=== PATIENT | male | born 1950 | race Caucasian/White ===

== ENCOUNTER 2019-09-30 05:27 | Inpatient (IN) ==
[2019-09-30] MEDS ORDERED: *HR* LORazepam 2 MG/ML VIAL ONE (08:02)
[2019-09-30] MEDS: *HR* LORazepam 2 MG/ML VIAL IVP PRN (08:06)
[2019-09-30] MEDS ORDERED: Amiodarone Premix 360 MG/200 ML BAG IVC ONE (08:14)
[2019-09-30] MEDS ORDERED: *HR* Heparin 5,000 UNIT/ML VIAL IVP ONE (08:14)
[2019-09-30] MEDS ORDERED: *HR* Heparin 5,000 UNIT/ML VIAL IVP PRN (08:14)
[2019-09-30] MEDS ORDERED: Amiodarone Premix 360 MG/200 ML BAG IVC SCH (08:15)
[2019-09-30 08:33] LABS: Basophils % 0.1 %; Eosinophils % 0.4 %; Hematocrit 28.9 % (37.5-50.1); Hemoglobin 9.6 g/dL (12.9-16.9); Immature Granulocytes % 0.4 % (0-4); Lymphocytes # 1.1 K/mcL (0.6-4.6); Lymphocytes % 14.4 %; Mean Corpuscular HGB Conc 33.2 g/dL (31.6-35.5); Mean Corpuscular Hemoglobin 29.4 pg (28.0-33.3); Mean Corpuscular Volume 88.4 fL (83.0-100.0); Mean Platelet Volume 10.4 fL (9.4-12.4); Monocytes # 0.6 K/mcL (0.0-1.3); Monocytes % 7.5 %; Neutrophils # 5.8 K/mcL (1.6-8.9); Platelet Count 155 K/mcL (140-400); Red Blood Count 3.27 M/mcL (4.19-5.50); Segmented Neutrophils % 77.2 %; White Blood Count 7.5 K/mcL (4.3-11.1)
[2019-09-30] MEDS ORDERED: Naloxone 0.4 MG/ML INJ IVP PRN (08:39)
[2019-09-30] MEDS ORDERED: *HR* Dextrose 50 % in Water (Syg) 50 ML SYRINGE IVP PRN (08:43)
[2019-09-30] MEDS ORDERED: Dextrose Gel 15 GM/37.5 ML TUBE PO PRN ×2 (08:43)
[2019-09-30] MEDS ORDERED: D5% in Water 1,000 ML IVC PRN (08:43)
[2019-09-30] MEDS: Heparin 25,000 UNIT/250 ML D5W 25,000 UNIT/250 ML IV.SOLN IVC SCH ×2 (08:54→22:58)
[2019-09-30 09:03] LABS: Albumin 3.1 g/dL (3.5-5.7); Albumin/Globulin Ratio 1.2 (1.1-2.2); Bilirubin,Total 0.4 mg/dL (0.3-1.0); Calcium 8.3 mg/dL (8.6-10.3); Globulin 2.5 g/dL (2.4-3.5); Magnesium 1.6 mg/dL (1.6-2.6); Potassium 3.8 mEq/L (3.5-5.1); Total Protein 5.6 g/dL (6.4-8.9); Troponin I 2.06 ng/mL (< 0.04)
[2019-09-30] MEDS: 0.9 % Sodium Chloride 1,000 ML IVC SCH ×2 (10:37→23:02)
[2019-09-30] MEDS: Cefepime HCl 2,000 MG in Water for inj. (sterile) 20 ML IVP SCH (11:37)
[2019-09-30] MEDS: MetroNIDAZOLE 500 MG/100 ML 500 MG/100 ML BAG IVPB SCH ×3 (11:38→23:29)
[2019-09-30] MEDS: Insulin LISPRO 300 UNITS/3 ML VIAL SQ SCH ×3 (11:43→23:51)
[2019-09-30] MEDS: Aspirin 81 MG TAB.CHEW PO SCH (13:31)
[2019-09-30] MEDS: *HR* Heparin 5,000 UNIT/ML VIAL IVP PRN (14:21)
[2019-10-01 02:45] LABS: Basophils % 0.1 %; Eosinophils # 0.1 K/mcL (0.0-0.6); Eosinophils % 1.7 %; Hematocrit 27.1 % (37.5-50.1); Hemoglobin 9.3 g/dL (12.9-16.9); Immature Granulocytes % 0.4 % (0-4); Lymphocytes # 0.9 K/mcL (0.6-4.6); Lymphocytes % 12.6 %; Mean Corpuscular HGB Conc 34.3 g/dL (31.6-35.5); Mean Corpuscular Hemoglobin 29.2 pg (28.0-33.3); Mean Corpuscular Volume 85.2 fL (83.0-100.0); Mean Platelet Volume 10.5 fL (9.4-12.4); Monocytes # 0.6 K/mcL (0.0-1.3); Monocytes % 8.5 %; Neutrophils # 5.5 K/mcL (1.6-8.9); Platelet Count 159 K/mcL (140-400); Red Blood Count 3.18 M/mcL (4.19-5.50); Red Cell Distribution Width 12.1 % (11.5-14.5); Segmented Neutrophils % 76.7 %; White Blood Count 7.2 K/mcL (4.3-11.1)
[2019-10-01 03:06] LABS: Magnesium 2.1 mg/dL (1.6-2.6); Potassium 4.1 mEq/L (3.5-5.1)
[2019-10-01] MEDS: *HR* Heparin 5,000 UNIT/ML VIAL IVP PRN (04:02)
[2019-10-01] MEDS: Insulin LISPRO 300 UNITS/3 ML VIAL SQ SCH ×3 (06:01→17:12)
[2019-10-01] MEDS: Aspirin 81 MG TAB.CHEW PO SCH (08:07)
[2019-10-01] MEDS: MetroNIDAZOLE 500 MG/100 ML 500 MG/100 ML BAG IVPB SCH ×2 (08:07→17:10)
[2019-10-01] MEDS: Cefepime HCl 2,000 MG in Water for inj. (sterile) 20 ML IVP SCH (11:56)
[2019-10-01] MEDS: Metoclopramide 10 MG/2 ML VIAL IVP SCH ×2 (11:56→17:10)
[2019-10-01] MEDS: Heparin 25,000 UNIT/250 ML D5W 25,000 UNIT/250 ML IV.SOLN IVC SCH (17:12)
[2019-10-01] MEDS: levETIRAcetam 250 MG TABLET PO SCH (21:19)
[2019-10-02] MEDS: Metoclopramide 10 MG/2 ML VIAL IVP SCH ×5 (00:13→23:35)
[2019-10-02] MEDS: MetroNIDAZOLE 500 MG/100 ML 500 MG/100 ML BAG IVPB SCH ×4 (00:15→23:35)
[2019-10-02] MEDS: Insulin LISPRO 300 UNITS/3 ML VIAL SQ SCH ×5 (00:34→23:54)
[2019-10-02 07:08] LABS: Basophils % 0.1 %; Eosinophils # 0.1 K/mcL (0.0-0.6); Eosinophils % 1.2 %; Hematocrit 25.8 % (37.5-50.1); Hemoglobin 8.7 g/dL (12.9-16.9); Immature Granulocytes % 0.5 % (0-4); Lymphocytes # 1.1 K/mcL (0.6-4.6); Lymphocytes % 14.6 %; Mean Corpuscular HGB Conc 33.7 g/dL (31.6-35.5); Mean Corpuscular Hemoglobin 29.1 pg (28.0-33.3); Mean Corpuscular Volume 86.3 fL (83.0-100.0); Mean Platelet Volume 10.3 fL (9.4-12.4); Monocytes # 0.8 K/mcL (0.0-1.3); Monocytes % 9.6 %; Neutrophils # 5.8 K/mcL (1.6-8.9); Platelet Count 164 K/mcL (140-400); Red Blood Count 2.99 M/mcL (4.19-5.50); Red Cell Distribution Width 12.3 % (11.5-14.5); White Blood Count 7.8 K/mcL (4.3-11.1)
[2019-10-02 07:28] LABS: Calcium 8.4 mg/dL (8.6-10.3); Potassium 3.7 mEq/L (3.5-5.1)
[2019-10-02 07:30] LABS: Troponin I 0.8 ng/mL (< 0.04)
[2019-10-02] MEDS: levETIRAcetam 250 MG TABLET PO SCH ×2 (09:19→21:40)
[2019-10-02] MEDS: Aspirin 81 MG TAB.CHEW PO SCH (09:20)
[2019-10-02] MEDS: Folic Acid 1 MG TABLET PO SCH (09:20)
[2019-10-02] MEDS: Fluticasone Propionate Nasal 50 MCG/SPRAY BOTTLE NS SCH (09:23)
[2019-10-02] MEDS: Heparin 25,000 UNIT/250 ML D5W 25,000 UNIT/250 ML IV.SOLN IVC SCH (11:11)
[2019-10-02] MEDS: Cefepime HCl 2,000 MG in Water for inj. (sterile) 20 ML IVP SCH (12:13)
[2019-10-02] MEDS: *HR* Heparin 5,000 UNIT/ML VIAL IVP PRN (16:36)
[2019-10-02] MEDS: *HR* LORazepam 2 MG/ML VIAL IVP PRN (23:34)
[2019-10-03 00:24] LABS: ABG Base Excess -3 mEq/L (-2 to 3); ABG HCO3 22 mEq/L (21-27); ABG Oxygen Saturation 68 % (95-98); ABG PCO2 35 mmHg (35-45); ABG PO2 35 mmHg (85-104); ABG TCO2 23 mEq/L (20-26)
[2019-10-03] MEDS: Heparin 25,000 UNIT/250 ML D5W 25,000 UNIT/250 ML IV.SOLN IVC SCH (04:19)
[2019-10-03] MEDS: *HR* LORazepam 2 MG/ML VIAL IVP PRN ×2 (05:24→22:15)
[2019-10-03] MEDS: Metoclopramide 10 MG/2 ML VIAL IVP SCH ×4 (05:24→23:11)
[2019-10-03] MEDS: Insulin LISPRO 300 UNITS/3 ML VIAL SQ SCH ×4 (05:25→20:53)
[2019-10-03 07:47] LABS: Basophils % 0.1 %; Eosinophils # 0.1 K/mcL (0.0-0.6); Eosinophils % 1.6 %; Hematocrit 23.4 % (37.5-50.1); Hemoglobin 7.7 g/dL (12.9-16.9); Immature Granulocytes % 0.9 % (0-4); Lymphocytes # 1.3 K/mcL (0.6-4.6); Lymphocytes % 17.8 %; Mean Corpuscular HGB Conc 32.9 g/dL (31.6-35.5); Mean Corpuscular Hemoglobin 29.5 pg (28.0-33.3); Mean Corpuscular Volume 89.7 fL (83.0-100.0); Monocytes # 0.8 K/mcL (0.0-1.3); Monocytes % 10.7 %; Neutrophils # 5.1 K/mcL (1.6-8.9); Platelet Count 173 K/mcL (140-400); Red Blood Count 2.61 M/mcL (4.19-5.50); Red Cell Distribution Width 12.5 % (11.5-14.5); Segmented Neutrophils % 68.9 %; White Blood Count 7.4 K/mcL (4.3-11.1)
[2019-10-03 08:10] LABS: Troponin I 0.64 ng/mL (< 0.04)
[2019-10-03] MEDS: Aspirin 81 MG TAB.CHEW PO SCH (08:29)
[2019-10-03] MEDS: Folic Acid 1 MG TABLET PO SCH (08:29)
[2019-10-03] MEDS: MetroNIDAZOLE 500 MG/100 ML 500 MG/100 ML BAG IVPB SCH ×3 (08:29→23:11)
[2019-10-03] MEDS: levETIRAcetam 250 MG TABLET PO SCH ×2 (08:30→21:16)
[2019-10-03] MEDS: Fluticasone Propionate Nasal 50 MCG/SPRAY BOTTLE NS SCH (08:30)
[2019-10-03 08:33] LABS: Calcium 7.9 mg/dL (8.6-10.3); Potassium 3.5 mEq/L (3.5-5.1)
[2019-10-03 12:26] LABS: Hematocrit 23.9 % (37.5-50.1)
[2019-10-03] MEDS: Cefepime HCl 2,000 MG in Water for inj. (sterile) 20 ML IVP SCH (12:43)
[2019-10-03] MEDS: 0.9 % Sodium Chloride 1,000 ML IVC SCH (12:45)
[2019-10-04 02:52] LABS: Basophils % 0.2 %; Eosinophils # 0.1 K/mcL (0.0-0.6); Eosinophils % 1.5 %; Hematocrit 24.8 % (37.5-50.1); Hemoglobin 7.9 g/dL (12.9-16.9); Immature Granulocytes % 1.1 % (0-4); Lymphocytes # 0.8 K/mcL (0.6-4.6); Lymphocytes % 11.6 %; Mean Corpuscular HGB Conc 31.9 g/dL (31.6-35.5); Mean Corpuscular Volume 91.2 fL (83.0-100.0); Mean Platelet Volume 9.9 fL (9.4-12.4); Monocytes # 0.7 K/mcL (0.0-1.3); Monocytes % 11.2 %; Neutrophils # 4.9 K/mcL (1.6-8.9); Platelet Count 177 K/mcL (140-400); Red Blood Count 2.72 M/mcL (4.19-5.50); Red Cell Distribution Width 12.9 % (11.5-14.5); Segmented Neutrophils % 74.4 %; White Blood Count 6.6 K/mcL (4.3-11.1)
[2019-10-04 03:14] LABS: Calcium 7.9 mg/dL (8.6-10.3); Potassium 3.7 mEq/L (3.5-5.1)
[2019-10-04] MEDS: *HR* LORazepam 2 MG/ML VIAL IVP PRN ×3 (03:41→17:29)
[2019-10-04] MEDS: Metoclopramide 10 MG/2 ML VIAL IVP SCH ×4 (05:35→23:37)
[2019-10-04] MEDS: Cefepime HCl 2,000 MG in 0.9 % Sodium Chloride Mini Bag 100 ML IVPB SCH ×2 (08:59→19:41)
[2019-10-04] MEDS: levETIRAcetam 250 MG TABLET PO SCH ×2 (08:59→19:42)
[2019-10-04] MEDS: metroNIDAZOLE 500 MG TABLET PO SCH ×3 (09:00→19:41)
[2019-10-04] MEDS: Aspirin 81 MG TAB.CHEW PO SCH (09:01)
[2019-10-04] MEDS: Folic Acid 1 MG TABLET PO SCH (09:01)
[2019-10-04] MEDS: 0.9 % Sodium Chloride 1,000 ML IVC SCH (09:03)
[2019-10-04] MEDS: Fluticasone Propionate Nasal 50 MCG/SPRAY BOTTLE NS SCH (09:04)
[2019-10-04] MEDS: Insulin LISPRO 300 UNITS/3 ML VIAL SQ SCH ×4 (09:05→19:57)
[2019-10-04] MEDS ORDERED: Levalbuterol Neb 0.63 MG/3 ML IH PRN (10:50)
[2019-10-04] MEDS: Ipratropium Neb 0.5 MG NEBULIZER IH SCH ×3 (11:23→22:03)
[2019-10-04] MEDS: Levalbuterol Neb 1.25 MG/3 ML IH SCH ×3 (11:23→22:03)
[2019-10-04] MEDS ORDERED: Furosemide 40 MG/4 ML VIAL IVP ONE (11:34)
[2019-10-04 11:54] LABS: ABG Base Excess -4 mEq/L (-2 to 3); ABG HCO3 20 mEq/L (21-27); ABG Oxygen Saturation 93 % (95-98); ABG PCO2 30 mmHg (35-45); ABG PH 7.44 pH Units (7.32-7.45); ABG PO2 65 mmHg (85-104); ABG TCO2 21 mEq/L (20-26)
[2019-10-04] MEDS: Diltiazem CD (24hr) 120 MG CAPSULE PO SCH (15:51)
[2019-10-05] MEDS: Ipratropium Neb 0.5 MG NEBULIZER IH SCH ×4 (04:17→22:19)
[2019-10-05] MEDS: Levalbuterol Neb 1.25 MG/3 ML IH SCH ×4 (04:17→22:19)
[2019-10-05] MEDS: *HR* LORazepam 2 MG/ML VIAL IVP PRN ×2 (04:20→22:13)
[2019-10-05] MEDS: Metoclopramide 10 MG/2 ML VIAL IVP SCH (05:27)
[2019-10-05 05:56] LABS: Basophils % 0.3 %; Eosinophils # 0.2 K/mcL (0.0-0.6); Eosinophils % 2.9 %; Hemoglobin 8.6 g/dL (12.9-16.9); Immature Granulocytes % 1.6 % (0-4); Lymphocytes # 1.2 K/mcL (0.6-4.6); Lymphocytes % 19.2 %; Mean Corpuscular HGB Conc 33.1 g/dL (31.6-35.5); Mean Corpuscular Hemoglobin 29.5 pg (28.0-33.3); Mean Platelet Volume 10.2 fL (9.4-12.4); Monocytes # 0.7 K/mcL (0.0-1.3); Monocytes % 10.6 %; Platelet Count 227 K/mcL (140-400); Red Blood Count 2.92 M/mcL (4.19-5.50); Red Cell Distribution Width 13.2 % (11.5-14.5); Segmented Neutrophils % 65.4 %; White Blood Count 6.2 K/mcL (4.3-11.1)
[2019-10-05 06:18] LABS: Calcium 8.8 mg/dL (8.6-10.3); Potassium 3.5 mEq/L (3.5-5.1)
[2019-10-05] MEDS: Diltiazem CD (24hr) 120 MG CAPSULE PO SCH (08:49)
[2019-10-05] MEDS: Aspirin 81 MG TAB.CHEW PO SCH (08:50)
[2019-10-05] MEDS: Folic Acid 1 MG TABLET PO SCH (08:50)
[2019-10-05] MEDS: levETIRAcetam 250 MG TABLET PO SCH ×2 (08:50→21:11)
[2019-10-05] MEDS: metroNIDAZOLE 500 MG TABLET PO SCH ×3 (08:50→21:11)
[2019-10-05] MEDS: Cefepime HCl 2,000 MG in 0.9 % Sodium Chloride Mini Bag 100 ML IVPB SCH (08:51)
[2019-10-05] MEDS: Insulin LISPRO 300 UNITS/3 ML VIAL SQ SCH ×4 (08:51→21:12)
[2019-10-05] MEDS: Fluticasone Propionate Nasal 50 MCG/SPRAY BOTTLE NS SCH (08:52)
[2019-10-05] MEDS ORDERED: Furosemide 40 MG/4 ML VIAL IVP ONE (09:29)
[2019-10-05] MEDS ORDERED: Diltiazem CD (24hr) 120 MG CAPSULE PO SCH ×2 (09:58→10:50)
[2019-10-05] MEDS ORDERED: Diltiazem CD (24hr) 120 MG CAPSULE PO ONE (10:02)
[2019-10-06] MEDS: Cefepime HCl 2,000 MG in 0.9 % Sodium Chloride Mini Bag 100 ML IVPB SCH ×3 (00:04→21:07)
[2019-10-06] MEDS: Ipratropium Neb 0.5 MG NEBULIZER IH SCH ×4 (03:30→21:14)
[2019-10-06] MEDS: Levalbuterol Neb 1.25 MG/3 ML IH SCH ×4 (03:30→21:14)
[2019-10-06] MEDS ORDERED: Diltiazem CD (24hr) 120 MG CAPSULE PO SCH ×2 (09:00→11:41)
[2019-10-06 09:42] LABS: Basophils % 0.2 %; Eosinophils # 0.2 K/mcL (0.0-0.6); Eosinophils % 1.7 %; Hematocrit 25.7 % (37.5-50.1); Hemoglobin 8.5 g/dL (12.9-16.9); Immature Granulocytes % 0.9 % (0-4); Lymphocytes # 0.9 K/mcL (0.6-4.6); Lymphocytes % 10.4 %; Mean Corpuscular HGB Conc 33.1 g/dL (31.6-35.5); Mean Corpuscular Hemoglobin 29.2 pg (28.0-33.3); Mean Corpuscular Volume 88.3 fL (83.0-100.0); Mean Platelet Volume 9.5 fL (9.4-12.4); Monocytes # 0.8 K/mcL (0.0-1.3); Monocytes % 8.5 %; Platelet Count 273 K/mcL (140-400); Red Blood Count 2.91 M/mcL (4.19-5.50); Red Cell Distribution Width 13.2 % (11.5-14.5); Segmented Neutrophils % 78.3 %
[2019-10-06 09:50] LABS: Calcium 8.8 mg/dL (8.6-10.3); Potassium 3.6 mEq/L (3.5-5.1)
[2019-10-06] MEDS: Insulin LISPRO 300 UNITS/3 ML VIAL SQ SCH ×4 (10:06→21:07)
[2019-10-06] MEDS: Folic Acid 1 MG TABLET PO SCH (10:07)
[2019-10-06] MEDS: Aspirin 81 MG TAB.CHEW PO SCH (10:07)
[2019-10-06] MEDS: metroNIDAZOLE 500 MG TABLET PO SCH ×3 (10:07→21:06)
[2019-10-06] MEDS: levETIRAcetam 250 MG TABLET PO SCH ×2 (10:07→21:06)
[2019-10-06] MEDS: Furosemide 40 MG/4 ML VIAL IVP SCH (10:08)
[2019-10-06] MEDS: Fluticasone Propionate Nasal 50 MCG/SPRAY BOTTLE NS SCH (10:10)
[2019-10-06] MEDS: Nicotine 2 MG GUM PO PRN (11:04)
[2019-10-06] MEDS ORDERED: Diltiazem CD (24hr) 120 MG CAPSULE PO ONE (11:43)
[2019-10-07] MEDS: Levalbuterol Neb 1.25 MG/3 ML IH SCH ×4 (03:12→21:21)
[2019-10-07] MEDS: Ipratropium Neb 0.5 MG NEBULIZER IH SCH ×4 (03:12→21:21)
[2019-10-07] MEDS: *HR* LORazepam 2 MG/ML VIAL IVP PRN (06:13)
[2019-10-07] MEDS: Nicotine 2 MG GUM PO PRN (06:19)
[2019-10-07] MEDS: Insulin LISPRO 300 UNITS/3 ML VIAL SQ SCH ×4 (08:45→21:05)
[2019-10-07] MEDS: Cefepime HCl 2,000 MG in 0.9 % Sodium Chloride Mini Bag 100 ML IVPB SCH ×2 (08:48→21:02)
[2019-10-07] MEDS: Diltiazem CD (24hr) 180 MG CAPSULE PO SCH (10:59)
[2019-10-07] MEDS: levETIRAcetam 250 MG TABLET PO SCH ×2 (11:00→21:05)
[2019-10-07] MEDS: metroNIDAZOLE 500 MG TABLET PO SCH ×3 (11:01→21:04)
[2019-10-07] MEDS: Folic Acid 1 MG TABLET PO SCH (11:01)
[2019-10-07] MEDS: Aspirin 81 MG TAB.CHEW PO SCH (11:01)
[2019-10-07] MEDS: Furosemide 40 MG/4 ML VIAL IVP SCH (11:02)
[2019-10-07] MEDS: Nicotine 14 MG PATCH.TD24 TD SCH (11:04)
[2019-10-07] MEDS: Fluticasone Propionate Nasal 50 MCG/SPRAY BOTTLE NS SCH (11:05)
[2019-10-07] MEDS ORDERED: SODIUM CHLORIDE/NAHCO3/KCL/PEG 4,000 ML SOLN.RECON PO ONE (17:00)
[2019-10-08] MEDS: Levalbuterol Neb 1.25 MG/3 ML IH SCH ×4 (04:03→21:33)
[2019-10-08] MEDS: Ipratropium Neb 0.5 MG NEBULIZER IH SCH ×4 (04:03→21:33)
[2019-10-08] MEDS: Cefepime HCl 2,000 MG in 0.9 % Sodium Chloride Mini Bag 100 ML IVPB SCH ×2 (08:31→20:41)
[2019-10-08] MEDS: Insulin LISPRO 300 UNITS/3 ML VIAL SQ SCH ×4 (08:31→21:26)
[2019-10-08] MEDS: Nicotine 14 MG PATCH.TD24 TD SCH (08:34)
[2019-10-08] MEDS: Folic Acid 1 MG TABLET PO SCH (08:35)
[2019-10-08] MEDS: Aspirin 81 MG TAB.CHEW PO SCH (08:35)
[2019-10-08] MEDS: Diltiazem CD (24hr) 180 MG CAPSULE PO SCH (08:35)
[2019-10-08] MEDS: Fluticasone Propionate Nasal 50 MCG/SPRAY BOTTLE NS SCH (08:36)
[2019-10-08] MEDS: metroNIDAZOLE 500 MG TABLET PO SCH ×3 (08:36→18:27)
[2019-10-08] MEDS: levETIRAcetam 250 MG TABLET PO SCH ×2 (08:36→20:39)
[2019-10-08] MEDS ORDERED: Ondansetron 4 MG/2 ML VIAL ONE (09:10)
[2019-10-08] MEDS ORDERED: 0.9 % Sodium Chloride 1,000 ML IVC SCH (10:15)
[2019-10-08] MEDS ORDERED: Propofol 500 MG/50 ML INFUS..BTL ONE (12:22)
[2019-10-08] MEDS ORDERED: *HR* Promethazine 25 MG/ML VIAL IVP ONE (12:46)
[2019-10-08] MEDS ORDERED: Promethazine 25 MG in 0.9 % Sodium Chloride 50 ML IVPB ONE (13:00)
[2019-10-08] MEDS: Ondansetron 4 MG/2 ML VIAL IVP PRN (16:28)
[2019-10-08] MEDS ORDERED: *HR* Metoprolol 5 MG/5 ML VIAL IVP ONE ×2 (16:55→18:09)
[2019-10-08] MEDS: Metoclopramide 10 MG/2 ML VIAL IVP SCH (18:08)
[2019-10-08] MEDS: Ringers Solution, Lactated 1,000 ML IVC SCH (20:42)
[2019-10-08] MEDS ORDERED: Acetaminophen IV 1,000 MG/100 ML INFUS..BTL IVPB ONE (21:38)
[2019-10-09] MEDS: Metoclopramide 10 MG/2 ML VIAL IVP SCH ×4 (00:46→17:15)
[2019-10-09] MEDS: metroNIDAZOLE 500 MG TABLET PO SCH ×3 (02:23→17:15)
[2019-10-09] MEDS: Ipratropium Neb 0.5 MG NEBULIZER IH SCH ×4 (04:20→22:13)
[2019-10-09] MEDS: Levalbuterol Neb 1.25 MG/3 ML IH SCH ×4 (04:20→22:13)
[2019-10-09 04:54] LABS: Hematocrit 29.9 % (37.5-50.1); Hemoglobin 9.9 g/dL (12.9-16.9)
[2019-10-09 05:11] LABS: Calcium 8.7 mg/dL (8.6-10.3); Potassium 3.2 mEq/L (3.5-5.1)
[2019-10-09] MEDS ORDERED: 0.9 % Sodium Chloride 500 ML IVC SCH (09:00)
[2019-10-09] MEDS ORDERED: Propofol 500 MG/50 ML INFUS..BTL ONE (09:01)
[2019-10-09] MEDS ORDERED: Lidocaine -MPF 2% 2 ML VIAL ONE (09:02)
[2019-10-09] MEDS ORDERED: *HR* PHENYLEPHRINE 1,000 MCG/10 ML SYRINGE IVP ONE (09:02)
[2019-10-09] MEDS ORDERED: Simethicone 40 MG/0.6 ML MLS IR ONE (09:43)
[2019-10-09] MEDS: levETIRAcetam 250 MG TABLET PO SCH ×2 (10:25→20:45)
[2019-10-09] MEDS: Diltiazem CD (24hr) 180 MG CAPSULE PO SCH (10:25)
[2019-10-09] MEDS: Aspirin 81 MG TAB.CHEW PO SCH (10:27)
[2019-10-09] MEDS: Folic Acid 1 MG TABLET PO SCH (10:27)
[2019-10-09] MEDS: Nicotine 14 MG PATCH.TD24 TD SCH (10:27)
[2019-10-09] MEDS: Insulin LISPRO 300 UNITS/3 ML VIAL SQ SCH ×4 (10:27→20:45)
[2019-10-09] MEDS: Fluticasone Propionate Nasal 50 MCG/SPRAY BOTTLE NS SCH (10:28)
[2019-10-09] MEDS: Cefepime HCl 2,000 MG in 0.9 % Sodium Chloride Mini Bag 100 ML IVPB SCH (11:56)
[2019-10-09] MEDS: Ondansetron 4 MG/2 ML VIAL IVP PRN (12:43)
[2019-10-09] MEDS: Ringers Solution, Lactated 1,000 ML IVC SCH (17:16)
[2019-10-10] MEDS: Metoclopramide 10 MG/2 ML VIAL IVP SCH ×5 (00:06→21:33)
[2019-10-10] MEDS: metroNIDAZOLE 500 MG TABLET PO SCH (02:47)
[2019-10-10] MEDS: Ipratropium Neb 0.5 MG NEBULIZER IH SCH ×4 (03:20→22:24)
[2019-10-10] MEDS: Levalbuterol Neb 1.25 MG/3 ML IH SCH ×4 (03:20→22:24)
[2019-10-10] MEDS: Insulin LISPRO 300 UNITS/3 ML VIAL SQ SCH ×4 (07:38→20:23)
[2019-10-10] MEDS: Aspirin 81 MG TAB.CHEW PO SCH (07:39)
[2019-10-10] MEDS: Diltiazem CD (24hr) 180 MG CAPSULE PO SCH (07:39)
[2019-10-10] MEDS: Folic Acid 1 MG TABLET PO SCH (07:39)
[2019-10-10] MEDS: Fluticasone Propionate Nasal 50 MCG/SPRAY BOTTLE NS SCH (07:39)
[2019-10-10] MEDS: Nicotine 14 MG PATCH.TD24 TD SCH (07:39)
[2019-10-10] MEDS: levETIRAcetam 250 MG TABLET PO SCH ×2 (07:39→20:17)
[2019-10-11] MEDS ORDERED: *HR* Metoprolol 5 MG/5 ML VIAL IVP ONE (04:08)
[2019-10-11] MEDS ORDERED: Acetaminophen 325 MG TABLET PO ONE (04:09)
[2019-10-11] MEDS: Ipratropium Neb 0.5 MG NEBULIZER IH SCH ×2 (04:26→11:15)
[2019-10-11] MEDS: Levalbuterol Neb 1.25 MG/3 ML IH SCH ×2 (04:26→11:15)
[2019-10-11] MEDS: Metoclopramide 10 MG/2 ML VIAL IVP SCH (05:56)
[2019-10-11 06:16] LABS: Basophils % 0.4 %; Eosinophils # 0.1 K/mcL (0.0-0.6); Eosinophils % 0.6 %; Hematocrit 29.3 % (37.5-50.1); Hemoglobin 9.3 g/dL (12.9-16.9); Immature Granulocytes % 0.6 % (0-4); Lymphocytes # 1.3 K/mcL (0.6-4.6); Lymphocytes % 11.7 %; Mean Corpuscular HGB Conc 31.7 g/dL (31.6-35.5); Mean Corpuscular Volume 91.3 fL (83.0-100.0); Mean Platelet Volume 9.9 fL (9.4-12.4); Monocytes # 0.9 K/mcL (0.0-1.3); Monocytes % 8.2 %; Neutrophils # 8.9 K/mcL (1.6-8.9); Platelet Count 434 K/mcL (140-400); Red Blood Count 3.21 M/mcL (4.19-5.50); Red Cell Distribution Width 14.3 % (11.5-14.5); Segmented Neutrophils % 78.5 %; White Blood Count 11.3 K/mcL (4.3-11.1)
[2019-10-11 06:38] LABS: Calcium 8.9 mg/dL (8.6-10.3); Potassium 3.4 mEq/L (3.5-5.1)
[2019-10-11] MEDS: Nicotine 14 MG PATCH.TD24 TD SCH (07:29)
[2019-10-11] MEDS: levETIRAcetam 250 MG TABLET PO SCH (07:29)
[2019-10-11] MEDS: Folic Acid 1 MG TABLET PO SCH (07:29)
[2019-10-11] MEDS: Aspirin 81 MG TAB.CHEW PO SCH (07:29)
[2019-10-11] MEDS: Fluticasone Propionate Nasal 50 MCG/SPRAY BOTTLE NS SCH (07:29)
[2019-10-11] MEDS: Diltiazem CD (24hr) 180 MG CAPSULE PO SCH (07:29)
[2019-10-11] MEDS: Insulin LISPRO 300 UNITS/3 ML VIAL SQ SCH ×2 (07:30→12:39)
[2019-10-11 08:42] LABS: Estimated Average Glucose 151 mg/dl
[2019-10-11 10:56] VITALS: BP 150/99
[2019-10-11] MEDS ORDERED: Metoclopramide 10 MG/10 ML UD.LIQ PO SCH (11:30)
== END 2019-10-11 13:15 | DRG 280 ==
LOC: 2NNU → SUATTDRO 09:51 → 2ANU 10-02 13:05
PROVIDERS: ADMIT Internal Medicine; ATTEND Internal Medicine
PROC: ENDOEBX (2019-10-09 08:00)

== ENCOUNTER 2020-03-02 18:59 | Inpatient (IN) ==
[2020-03-02 19:37] LABS: Basophils % 0.2 %; Eosinophils # 0.1 K/mcL (0.0-0.6); Eosinophils % 0.4 %; Hematocrit 28.1 % (37.5-50.1); Hemoglobin 9.3 g/dL (12.9-16.9); Immature Granulocytes % 0.7 % (0-4); Lymphocytes # 0.8 K/mcL (0.6-4.6); Lymphocytes % 4.4 %; Mean Corpuscular HGB Conc 33.1 g/dL (31.6-35.5); Mean Corpuscular Hemoglobin 30.2 pg (28.0-33.3); Mean Corpuscular Volume 91.2 fL (83.0-100.0); Mean Platelet Volume 10.8 fL (9.4-12.4); Monocytes # 1.1 K/mcL (0.0-1.3); Monocytes % 6.3 %; Neutrophils # 15.7 K/mcL (1.6-8.9); Platelet Count 194 K/mcL (140-400); Red Blood Count 3.08 M/mcL (4.19-5.50); Red Cell Distribution Width 13.7 % (11.5-14.5); White Blood Count 17.9 K/mcL (4.3-11.1)
[2020-03-02 19:41] LABS: ABG Base Excess -10 mEq/L (-2 to 3); ABG HCO3 17 mEq/L (21-27); ABG Oxygen Saturation 94 % (95-98); ABG PCO2 38 mmHg (35-45); ABG PH 7.25 pH Units (7.32-7.45); ABG PO2 82 mmHg (85-104); ABG TCO2 18 mEq/L (20-26)
[2020-03-02 19:43] LABS: INR 1.3; Prothrombin Time 14.7 Seconds (9.4-12.1)
[2020-03-02] MEDS ORDERED: Azithromycin 500 MG in 0.9 % Sodium Chloride 250 ML IVPB ONE (19:47)
[2020-03-02] MEDS ORDERED: 0.9 % Sodium Chloride 1,000 ML IVC ONE (19:55)
[2020-03-02] MEDS ORDERED: 0.9 % Sodium Chloride 1,000 ML IVC STA (19:55)
[2020-03-02] MEDS ORDERED: Cefepime HCl 2,000 MG in 0.9 % Sodium Chloride Mini Bag 100 ML IVPB ONE (20:00)
[2020-03-02 20:06] LABS: Troponin I 0.05 ng/mL (< 0.04)
[2020-03-02 20:26] LABS: Albumin 3.3 g/dL (3.5-5.7); Albumin/Globulin Ratio 1.3 (1.1-2.2); Bilirubin,Total 0.3 mg/dL (0.3-1.0); Calcium 8.7 mg/dL (8.6-10.3); Globulin 2.6 g/dL (2.4-3.5); Potassium 5.1 mEq/L (3.5-5.1); Total Protein 5.9 g/dL (6.4-8.9)
[2020-03-02] MEDS ORDERED: Acetaminophen 325 MG TABLET PO PRN (21:02)
[2020-03-02] MEDS ORDERED: Ondansetron 4 MG/2 ML VIAL IVP PRN (21:02)
[2020-03-02] MEDS ORDERED: Naloxone 0.4 MG/ML INJ IVP PRN (21:02)
[2020-03-02] MEDS ORDERED: Ipratropium/Albuterol Neb 3 ML IH PRN (21:35)
[2020-03-02] MEDS ORDERED: *HR* LORazepam 2 MG/ML VIAL IVP ONE (22:06)
[2020-03-02] MEDS ORDERED: Ringers Solution, Lactated 1,000 ML IVC ONE (22:09)
[2020-03-02] MEDS ORDERED: Dextrose Gel 15 GM/37.5 ML TUBE PO PRN ×2 (23:04)
[2020-03-02] MEDS ORDERED: D5% in Water 1,000 ML IVC PRN (23:04)
[2020-03-02] MEDS ORDERED: *HR* Dextrose 50 % in Water (Syg) 50 ML SYRINGE IVP PRN (23:04)
[2020-03-02] MEDS ORDERED: Insulin DETEMIR 100 UNIT/ML X5UNITS SQ SCH ×2 (23:15)
[2020-03-02] MEDS ORDERED: Insulin LISPRO 300 UNITS/3 ML VIAL SQ SCH ×2 (23:15)
[2020-03-02] MEDS ORDERED: FentaNYL (PF) 1,000 MCG in 0.9 % Sodium Chloride 80 ML IVC SCH (23:15)
[2020-03-03] MEDS: Acetaminophen IV 1,000 MG/100 ML INFUS..BTL IVPB SCH ×4 (00:15→17:24)
[2020-03-03] MEDS ORDERED: *HR* Dextrose 50 % in Water (Syg) 50 ML SYRINGE IVP PRN (00:16)
[2020-03-03] MEDS ORDERED: D5% in Water 1,000 ML IVC PRN (00:16)
[2020-03-03] MEDS ORDERED: Dextrose Gel 15 GM/37.5 ML TUBE PO PRN ×2 (00:16)
[2020-03-03] MEDS: Aspirin 81 MG TAB.CHEW PO SCH ×2 (00:19→10:38)
[2020-03-03] MEDS: Pantoprazole 40 MG VIAL IVP SCH ×2 (00:29→08:14)
[2020-03-03] MEDS: *HR* Heparin 5,000 UNIT/ML VIAL SQ SCH ×2 (00:29→05:30)
[2020-03-03] MEDS: 0.9 % Sodium Chloride 1,000 ML IVC SCH (00:30)
[2020-03-03] MEDS: Insulin LISPRO 300 UNITS/3 ML VIAL SQ SCH ×4 (00:47→18:00)
[2020-03-03 02:18] LABS: Bilirubin,Urine Negative (Negative); Blood,Urine Moderate (Negative); Clarity,Urine Cloudy (Clear); Color,Urine Yellow (Yellow); Glucose,Urine (UA) 250 mg/dL (Normal); Ketones,Urine Negative (Negative); Leukocyte Esterase,Urine Negative (Negative); Nitrite,Urine Negative (Negative); PH,Urine 5.5 pH Units (5.0-8.0); Protein,Urine >=1000 mg/dL (Neg-Trace); Specific Gravity,Urine 1.025 (1.010-1.025); Urobilinogen,Urine Normal (Normal)
[2020-03-03 02:21] LABS: Bacteria,Urine None Seen per hpf (None-Few); Hyaline Casts,Urine Few per lpf (None-Few); Squamous Epithelial Cell,Urine Many per lpf (None-Few)
[2020-03-03 02:36] LABS: INR 1.2
[2020-03-03 03:19] LABS: Adenovirus Not Detected (Not Detect); Bordetella Pertussis Not Detected (Not Detect); Chlamydophila pneumoniae Not Detected (Not Detect); Coronavirus 229E Not Detected (Not Detect); Coronavirus HKU1 Not Detected (Not Detect); Coronavirus NL63 Not Detected (Not Detect); Coronavirus OC43 Not Detected (Not Detect); Human Metapneumovirus Not Detected (Not Detect); Human Rhinovirus/Enterovirus Not Detected (Not Detect); Influenza A Subtype 2009 H1 Not Detected (Not Detect); Influenza B Not Detected (Not Detect); Mycoplasma pneumoniae Not Detected (Not Detect); Parainfluenza Virus 1 Not Detected (Not Detect); Parainfluenza Virus 2 Not Detected (Not Detect); Parainfluenza Virus 3 Not Detected (Not Detect); Parainfluenza Virus 4 Not Detected (Not Detect); Respiratory Syncytial Virus Not Detected (Not Detect)
[2020-03-03] MEDS ORDERED: *HR* Heparin 5,000 UNIT/ML VIAL IVP PRN ×2 (03:44)
[2020-03-03] MEDS ORDERED: *HR* Heparin 5,000 UNIT/ML VIAL IVP ONE (03:44)
[2020-03-03] MEDS ORDERED: Heparin 25,000 UNIT/250 ML D5W 25,000 UNIT/250 ML IV.SOLN IVC SCH (03:45)
[2020-03-03 04:16] LABS: Calcium 7.7 mg/dL (8.6-10.3); Magnesium 1.6 mg/dL (1.6-2.6); Phosphorous 5.2 mg/dL (2.7-4.5); Potassium 5.3 mEq/L (3.5-5.1)
[2020-03-03 05:01] LABS: Heparin anti-factor XA UFH 0.79 IU/mL (0.30-0.70)
[2020-03-03] MEDS: MethylPREDNISolone 40 MG/ML VIAL IVP SCH ×2 (05:30→17:43)
[2020-03-03 06:14] LABS: ABG Base Excess -5 mEq/L (-2 to 3); ABG HCO3 20 mEq/L (21-27); ABG Oxygen Saturation 99 % (95-98); ABG PCO2 35 mmHg (35-45); ABG PH 7.36 pH Units (7.32-7.45); ABG PO2 125 mmHg (85-104); ABG TCO2 21 mEq/L (20-26); Blood Gas Modality AF; Blood Gas VT 500 cc
[2020-03-03 06:45] LABS: Hematocrit 27.3 % (37.5-50.1); Hemoglobin 8.1 g/dL (12.9-16.9); Mean Corpuscular HGB Conc 29.7 g/dL (31.6-35.5); Mean Corpuscular Hemoglobin 29.5 pg (28.0-33.3); Mean Platelet Volume 10.9 fL (9.4-12.4); Platelet Count 151 K/mcL (140-400); Red Blood Count 2.75 M/mcL (4.19-5.50); Red Cell Distribution Width 14.1 % (11.5-14.5); Segmented Neutrophils % 86.9 %
[2020-03-03 06:46] LABS: Basophils % 0.1 %; Immature Granulocytes % 0.3 % (0-4); Lymphocytes # 0.4 K/mcL (0.6-4.6); Lymphocytes % 4.6 %; Mean Corpuscular Volume 99.3 fL (83.0-100.0); Monocytes # 0.7 K/mcL (0.0-1.3); Monocytes % 8.1 %; Neutrophils # 7.7 K/mcL (1.6-8.9); White Blood Count 8.9 K/mcL (4.3-11.1)
[2020-03-03] MEDS ORDERED: Furosemide 20 MG/2 ML VIAL IVP ONE (07:21)
[2020-03-03] MEDS: Cefepime HCl 2,000 MG in Water for inj. (sterile) 20 ML IVP SCH ×2 (08:13→20:33)
[2020-03-03] MEDS ORDERED: Haloperidol Oral Conc 10 MG/5 ML UDC GTUBE PRN (08:54)
[2020-03-03] MEDS ORDERED: Dexmedetomidine HCl 400 MCG/100 ML MLS IVC SCH (09:00)
[2020-03-03] MEDS ORDERED: Haloperidol Oral Conc 10 MG/5 ML UDC GTUBE SCH (09:00)
[2020-03-03] MEDS ORDERED: levETIRAcetam 250 MG TABLET PO SCH (09:00)
[2020-03-03] MEDS ORDERED: Insulin DETEMIR 100 UNIT/ML X5UNITS SQ SCH (09:00)
[2020-03-03] MEDS ORDERED: Aminoglycoside Consult 1 EACH MC ONE (09:25)
[2020-03-03] MEDS: Heparin 25,000 UNIT/250 ML D5W 25,000 UNIT/250 ML IV.SOLN IVC SCH (09:54)
[2020-03-03] MEDS ORDERED: Lidocaine 2% Syringe 100 MG/5 ML IV ONE (10:14)
[2020-03-03] MEDS ORDERED: *HR* Succinylcholine 200 MG/10 ML VIAL IVP ONE (10:14)
[2020-03-03] MEDS ORDERED: *HR* Rocuronium Bromide 50 MG/5 ML VIAL IVC ONE (10:14)
[2020-03-03] MEDS ORDERED: *HR* Midazolam HCl 5 MG/5 ML VIAL IVP ONE (10:14)
[2020-03-03] MEDS: Doxycycline 100 MG in 0.9 % Sodium Chloride Mini Bag 100 ML IVPB SCH ×2 (10:22→17:33)
[2020-03-03] MEDS: Haloperidol Oral Conc 10 MG/5 ML UDC GTUBE SCH ×3 (10:40→20:30)
[2020-03-03 12:03] LABS: Protein/Creatinine Ratio,Urine 6.18 mg/mg (0.00-0.20)
[2020-03-03] MEDS: levETIRAcetam 500 MG/5 ML UDC GTUBE SCH ×2 (12:10→20:32)
[2020-03-03] MEDS: Aspirin 81 MG TAB.CHEW GTUBE SCH (12:10)
[2020-03-03 12:24] LABS: Estimated Average Glucose 154 mg/dl
[2020-03-03] MEDS: *HR* HYDROmorphone 2 MG/ML SYRINGE IVP PRN ×2 (12:25→13:50)
[2020-03-03 12:34] LABS: Hematocrit 25.8 % (37.5-50.1); Mean Corpuscular Hemoglobin 28.7 pg (28.0-33.3); Mean Platelet Volume 10.6 fL (9.4-12.4); Platelet Count 148 K/mcL (140-400); Red Blood Count 2.79 M/mcL (4.19-5.50); Red Cell Distribution Width 13.7 % (11.5-14.5); White Blood Count 9.2 K/mcL (4.3-11.1)
[2020-03-03 12:35] LABS: Mean Corpuscular Volume 92.5 fL (83.0-100.0)
[2020-03-03 12:51] LABS: Creatine Kinase 216 Units/L (30-223); Total Protein 5.6 g/dL (6.4-8.9); Uric Acid 7.8 mg/dL (2.3-7.6)
[2020-03-03] MEDS: Morphine Sulfate 2 MG/ML SYRINGE IVP PRN (13:09)
[2020-03-03] MEDS ORDERED: Ipratropium 1 PUFF INHALER IH PRN (13:31)
[2020-03-03] MEDS: *HR* HYDROmorphone (PF) 1 MG/ML SYRINGE IVP SCH ×2 (17:32→20:26)
[2020-03-03] MEDS ORDERED: Azithromycin 500 MG in 0.9 % Sodium Chloride 250 ML IVPB SCH (18:00)
[2020-03-03] MEDS ORDERED: Doxycycline 200 MG in 0.9 % Sodium Chloride 250 ML IVPB SCH (18:00)
[2020-03-03] MEDS: *HR* LORazepam 2 MG/ML VIAL IVP PRN (18:07)
[2020-03-03 19:33] LABS: Heparin anti-factor XA UFH 0.98 IU/mL (0.30-0.70); INR 1.3; Prothrombin Time 14.5 Seconds (9.4-12.1)
[2020-03-03] MEDS: Insulin DETEMIR 100 UNIT/ML X5UNITS SQ SCH (23:12)
[2020-03-04] MEDS: *HR* HYDROmorphone (PF) 1 MG/ML SYRINGE IVP SCH ×9 (00:17→23:08)
[2020-03-04] MEDS: Acetaminophen IV 1,000 MG/100 ML INFUS..BTL IVPB SCH ×4 (00:17→17:01)
[2020-03-04] MEDS: Insulin LISPRO 300 UNITS/3 ML VIAL SQ SCH ×4 (00:24→17:01)
[2020-03-04] MEDS ORDERED: 0.9 % Sodium Chloride 1,000 ML ONE (01:12)
[2020-03-04 03:52] LABS: Hemoglobin 7.2 g/dL (12.9-16.9); Immature Granulocytes % 0.6 % (0-4); Lymphocytes # 0.4 K/mcL (0.6-4.6); Lymphocytes % 5.2 %; Mean Corpuscular HGB Conc 31.3 g/dL (31.6-35.5); Mean Corpuscular Hemoglobin 28.8 pg (28.0-33.3); Mean Platelet Volume 11.3 fL (9.4-12.4); Monocytes # 0.2 K/mcL (0.0-1.3); Neutrophils # 6.1 K/mcL (1.6-8.9); Platelet Count 159 K/mcL (140-400); Red Cell Distribution Width 13.9 % (11.5-14.5); Segmented Neutrophils % 91.2 %; White Blood Count 6.7 K/mcL (4.3-11.1)
[2020-03-04 04:07] LABS: Calcium 8.1 mg/dL (8.6-10.3); Magnesium 1.7 mg/dL (1.6-2.6); Potassium 4.6 mEq/L (3.5-5.1)
[2020-03-04 04:21] LABS: Complement C3 135 mg/dL (87-200)
[2020-03-04 04:34] LABS: ABG Base Excess -8 mEq/L (-2 to 3); ABG HCO3 17 mEq/L (21-27); ABG Oxygen Saturation 99 % (95-98); ABG PCO2 32 mmHg (35-45); ABG PH 7.33 pH Units (7.32-7.45); ABG PO2 130 mmHg (85-104); ABG TCO2 18 mEq/L (20-26); Blood Gas Modality AF; Blood Gas VT 500 cc
[2020-03-04] MEDS: Heparin 25,000 UNIT/250 ML D5W 25,000 UNIT/250 ML IV.SOLN IVC SCH (05:42)
[2020-03-04] MEDS: MethylPREDNISolone 40 MG/ML VIAL IVP SCH ×2 (05:52→17:01)
[2020-03-04] MEDS: Doxycycline 100 MG in 0.9 % Sodium Chloride Mini Bag 100 ML IVPB SCH ×2 (05:55→17:00)
[2020-03-04] MEDS ORDERED: Artificial Tears SOLN 15 ML BOTTLE BOTH EYES PRN (07:50)
[2020-03-04 07:59] LABS: Hemoglobin 7.2 g/dL (12.9-16.9)
[2020-03-04] MEDS: Aspirin 81 MG TAB.CHEW GTUBE SCH (08:16)
[2020-03-04] MEDS: Chlorhexidine Rinse 15 ML MOUTHWASH MM SCH ×2 (08:16→20:32)
[2020-03-04] MEDS: Artificial Tears SOLN 15 ML BOTTLE BOTH EYES SCH ×4 (08:16→20:32)
[2020-03-04] MEDS: levETIRAcetam 500 MG/5 ML UDC GTUBE SCH ×2 (08:16→20:32)
[2020-03-04] MEDS: Insulin DETEMIR 100 UNIT/ML X5UNITS SQ SCH ×2 (08:17→20:42)
[2020-03-04] MEDS: Cefepime HCl 2,000 MG in Water for inj. (sterile) 20 ML IVP SCH (08:17)
[2020-03-04] MEDS: Haloperidol Oral Conc 10 MG/5 ML UDC GTUBE SCH ×3 (08:17→23:08)
[2020-03-04] MEDS: Pantoprazole 40 MG VIAL IVP SCH (08:18)
[2020-03-04] MEDS: *HR* LORazepam 2 MG/ML VIAL IVP PRN (10:29)
[2020-03-04 15:20] LABS: Hemoglobin 7.3 g/dL (12.9-16.9)
[2020-03-04] MEDS: 0.9 % Sodium Chloride 1,000 ML IVC SCH (19:38)
[2020-03-04] MEDS: Cefepime HCl 1,000 MG in Water for inj. (sterile) 10 ML IVP SCH (20:33)
[2020-03-05] MEDS: Acetaminophen IV 1,000 MG/100 ML INFUS..BTL IVPB SCH ×5 (00:44→23:31)
[2020-03-05] MEDS: Artificial Tears SOLN 15 ML BOTTLE BOTH EYES SCH ×7 (00:45→23:31)
[2020-03-05] MEDS: Insulin LISPRO 300 UNITS/3 ML VIAL SQ SCH ×4 (00:45→18:03)
[2020-03-05 01:26] LABS: Hematocrit 23.1 % (37.5-50.1); Hemoglobin 7.3 g/dL (12.9-16.9); Immature Granulocytes % 0.7 % (0-4); Lymphocytes # 0.4 K/mcL (0.6-4.6); Lymphocytes % 4.5 %; Mean Corpuscular HGB Conc 31.6 g/dL (31.6-35.5); Mean Corpuscular Hemoglobin 29.4 pg (28.0-33.3); Mean Corpuscular Volume 93.1 fL (83.0-100.0); Mean Platelet Volume 11.1 fL (9.4-12.4); Monocytes # 0.4 K/mcL (0.0-1.3); Monocytes % 4.5 %; Neutrophils # 7.5 K/mcL (1.6-8.9); Platelet Count 201 K/mcL (140-400); Red Blood Count 2.48 M/mcL (4.19-5.50); Segmented Neutrophils % 90.3 %; White Blood Count 8.3 K/mcL (4.3-11.1)
[2020-03-05 01:45] LABS: Albumin 2.7 g/dL (3.5-5.7); Albumin/Globulin Ratio 1.2 (1.1-2.2); Bilirubin,Total 0.2 mg/dL (0.3-1.0); Calcium 8.3 mg/dL (8.6-10.3); Globulin 2.2 g/dL (2.4-3.5); Magnesium 1.9 mg/dL (1.6-2.6); Phosphorous 4.8 mg/dL (2.7-4.5); Potassium 4.4 mEq/L (3.5-5.1); Total Protein 4.9 g/dL (6.4-8.9)
[2020-03-05] MEDS: *HR* HYDROmorphone (PF) 1 MG/ML SYRINGE IVP SCH ×8 (01:49→23:31)
[2020-03-05 04:56] LABS: ABG Base Excess -9 mEq/L (-2 to 3); ABG HCO3 17 mEq/L (21-27); ABG Oxygen Saturation 83 % (95-98); ABG PCO2 37 mmHg (35-45); ABG PH 7.27 pH Units (7.32-7.45); ABG PO2 54 mmHg (85-104); ABG TCO2 18 mEq/L (20-26); Blood Gas Modality ASSIST CONTROL; Blood Gas VT 500 cc
[2020-03-05] MEDS: Doxycycline 100 MG in 0.9 % Sodium Chloride Mini Bag 100 ML IVPB SCH ×2 (06:00→17:59)
[2020-03-05] MEDS: Heparin 25,000 UNIT/250 ML D5W 25,000 UNIT/250 ML IV.SOLN IVC SCH (06:00)
[2020-03-05] MEDS: MethylPREDNISolone 40 MG/ML VIAL IVP SCH ×2 (06:25→17:59)
[2020-03-05] MEDS: levETIRAcetam 500 MG/5 ML UDC GTUBE SCH ×2 (08:28→19:28)
[2020-03-05] MEDS: Aspirin 81 MG TAB.CHEW GTUBE SCH (08:28)
[2020-03-05] MEDS: Chlorhexidine Rinse 15 ML MOUTHWASH MM SCH ×2 (08:28→19:27)
[2020-03-05] MEDS: Pantoprazole 40 MG VIAL IVP SCH (08:29)
[2020-03-05] MEDS: Cefepime HCl 1,000 MG in Water for inj. (sterile) 10 ML IVP SCH ×2 (08:29→19:32)
[2020-03-05] MEDS: Insulin DETEMIR 100 UNIT/ML X5UNITS SQ SCH ×2 (09:01→19:35)
[2020-03-05] MEDS ORDERED: Furosemide 40 MG/4 ML VIAL IVP ONE (09:20)
[2020-03-05] MEDS: Haloperidol Oral Conc 10 MG/5 ML UDC GTUBE SCH ×3 (10:12→19:32)
[2020-03-05] MEDS ORDERED: Doxycycline 100 MG VIAL ONE (17:53)
[2020-03-05] MEDS: *HR* Heparin 5,000 UNIT/ML VIAL SQ SCH (17:59)
[2020-03-05] MEDS: Morphine Sulfate 2 MG/ML SYRINGE IVP PRN (20:04)
[2020-03-06] MEDS: Insulin LISPRO 300 UNITS/3 ML VIAL SQ SCH ×5 (00:19→23:57)
[2020-03-06] MEDS: *HR* HYDROmorphone (PF) 1 MG/ML SYRINGE IVP SCH ×3 (01:43→08:30)
[2020-03-06 03:34] LABS: Hematocrit 26.7 % (37.5-50.1); Hemoglobin 8.5 g/dL (12.9-16.9); Immature Granulocytes % 0.8 % (0-4); Lymphocytes # 0.4 K/mcL (0.6-4.6); Lymphocytes % 6.6 %; Mean Corpuscular HGB Conc 31.8 g/dL (31.6-35.5); Mean Corpuscular Hemoglobin 29.9 pg (28.0-33.3); Mean Platelet Volume 10.8 fL (9.4-12.4); Monocytes # 0.4 K/mcL (0.0-1.3); Monocytes % 5.7 %; Neutrophils # 5.8 K/mcL (1.6-8.9); Platelet Count 225 K/mcL (140-400); Red Blood Count 2.84 M/mcL (4.19-5.50); Red Cell Distribution Width 14.1 % (11.5-14.5); Segmented Neutrophils % 86.9 %; White Blood Count 6.7 K/mcL (4.3-11.1)
[2020-03-06 03:51] LABS: Albumin 2.9 g/dL (3.5-5.7); Bilirubin,Total 0.2 mg/dL (0.3-1.0); Calcium 8.7 mg/dL (8.6-10.3); Globulin 2.8 g/dL (2.4-3.5); Magnesium 2.1 mg/dL (1.6-2.6); Phosphorous 6.4 mg/dL (2.7-4.5); Potassium 4.8 mEq/L (3.5-5.1); Total Protein 5.7 g/dL (6.4-8.9)
[2020-03-06] MEDS: Artificial Tears SOLN 15 ML BOTTLE BOTH EYES SCH ×6 (04:08→23:19)
[2020-03-06 05:34] LABS: ABG Base Excess -9 mEq/L (-2 to 3); ABG HCO3 18 mEq/L (21-27); ABG Oxygen Saturation 84 % (95-98); ABG PCO2 43 mmHg (35-45); ABG PH 7.24 pH Units (7.32-7.45); ABG PO2 57 mmHg (85-104); ABG TCO2 20 mEq/L (20-26); Blood Gas Modality ASSIST CONTROL; Blood Gas VT 500 cc
[2020-03-06] MEDS: Doxycycline 100 MG in 0.9 % Sodium Chloride Mini Bag 100 ML IVPB SCH ×2 (06:17→17:48)
[2020-03-06] MEDS: MethylPREDNISolone 40 MG/ML VIAL IVP SCH ×2 (06:17→17:49)
[2020-03-06] MEDS: *HR* Heparin 5,000 UNIT/ML VIAL SQ SCH (06:17)
[2020-03-06] MEDS: Acetaminophen IV 1,000 MG/100 ML INFUS..BTL IVPB SCH (06:19)
[2020-03-06] MEDS: levETIRAcetam 500 MG/5 ML UDC GTUBE SCH ×2 (08:49→19:38)
[2020-03-06] MEDS: Haloperidol Oral Conc 10 MG/5 ML UDC GTUBE SCH ×3 (08:49→19:38)
[2020-03-06] MEDS: Pantoprazole 40 MG VIAL IVP SCH (08:50)
[2020-03-06] MEDS: Cefepime HCl 1,000 MG in Water for inj. (sterile) 10 ML IVP SCH ×2 (08:50→19:25)
[2020-03-06] MEDS: Chlorhexidine Rinse 15 ML MOUTHWASH MM SCH ×2 (08:50→19:25)
[2020-03-06] MEDS: Aspirin 81 MG TAB.CHEW GTUBE SCH (08:51)
[2020-03-06] MEDS: Insulin DETEMIR 100 UNIT/ML X5UNITS SQ SCH ×2 (08:51→19:38)
[2020-03-06] MEDS: Dexmedetomidine HCl 400 MCG/100 ML MLS IVC SCH ×2 (09:00→20:19)
[2020-03-06] MEDS ORDERED: *HR* Heparin 5,000 UNIT/ML VIAL IVP PRN ×2 (11:19)
[2020-03-06] MEDS ORDERED: *HR* Heparin 5,000 UNIT/ML VIAL IVP ONE (11:19)
[2020-03-06] MEDS ORDERED: Heparin 25,000 UNIT/250 ML D5W 25,000 UNIT/250 ML IV.SOLN IVC SCH (11:30)
[2020-03-06] MEDS: Sennosides/Docusate Sodium TABLET GTUBE SCH ×2 (11:53→19:38)
[2020-03-06 15:02] LABS: ANA IgG by ELISA DETECTED (None Detected); Serine Protease-3 Antibody 3 AU/mL (0-19)
[2020-03-06] MEDS ORDERED: NIFEdipine XL (24 HR) 30 MG TAB.ER.24 PO SCH (17:15)
[2020-03-06] MEDS ORDERED: NIFEdipine 10 MG CAPSULE PO SCH (17:30)
[2020-03-06 18:28] LABS: INR 1.1; Prothrombin Time 12.1 Seconds (9.4-12.1)
[2020-03-06] MEDS: amLODIPine 5 MG TABLET PO SCH (18:36)
[2020-03-06] MEDS: Morphine Sulfate 2 MG/ML SYRINGE IVP PRN (23:53)
[2020-03-07 03:24] LABS: Hemoglobin 8.8 g/dL (12.9-16.9); Mean Corpuscular HGB Conc 32.6 g/dL (31.6-35.5); Mean Corpuscular Hemoglobin 29.5 pg (28.0-33.3); Mean Corpuscular Volume 90.6 fL (83.0-100.0); Platelet Count 226 K/mcL (140-400); Red Blood Count 2.98 M/mcL (4.19-5.50); Red Cell Distribution Width 13.7 % (11.5-14.5); White Blood Count 4.9 K/mcL (4.3-11.1)
[2020-03-07 03:43] LABS: Albumin 2.6 g/dL (3.5-5.7); Bilirubin,Total 0.3 mg/dL (0.3-1.0); Calcium 8.6 mg/dL (8.6-10.3); Globulin 2.6 g/dL (2.4-3.5); Magnesium 2.1 mg/dL (1.6-2.6); Phosphorous 4.9 mg/dL (2.7-4.5); Potassium 4.2 mEq/L (3.5-5.1); Total Protein 5.2 g/dL (6.4-8.9)
[2020-03-07] MEDS: Artificial Tears SOLN 15 ML BOTTLE BOTH EYES SCH ×2 (04:18→07:56)
[2020-03-07 04:50] LABS: ABG Base Excess -7 mEq/L (-2 to 3); ABG HCO3 18 mEq/L (21-27); ABG Oxygen Saturation 99 % (95-98); ABG PCO2 35 mmHg (35-45); ABG PH 7.32 pH Units (7.32-7.45); ABG PO2 125 mmHg (85-104); ABG TCO2 19 mEq/L (20-26); Blood Gas VT 500 cc
[2020-03-07] MEDS: Insulin LISPRO 300 UNITS/3 ML VIAL SQ SCH ×4 (05:53→23:13)
[2020-03-07] MEDS: MethylPREDNISolone 40 MG/ML VIAL IVP SCH ×2 (05:53→18:41)
[2020-03-07] MEDS: Doxycycline 100 MG in 0.9 % Sodium Chloride Mini Bag 100 ML IVPB SCH ×2 (05:53→18:40)
[2020-03-07] MEDS ORDERED: Furosemide 40 MG/4 ML VIAL IVP ONE (07:35)
[2020-03-07] MEDS: Aspirin 81 MG TAB.CHEW GTUBE SCH (07:54)
[2020-03-07] MEDS: Sennosides/Docusate Sodium TABLET GTUBE SCH (07:54)
[2020-03-07] MEDS: amLODIPine 5 MG TABLET PO SCH (07:54)
[2020-03-07] MEDS: Pantoprazole 40 MG VIAL IVP SCH (07:55)
[2020-03-07] MEDS: Chlorhexidine Rinse 15 ML MOUTHWASH MM SCH (07:55)
[2020-03-07] MEDS: Haloperidol Oral Conc 10 MG/5 ML UDC GTUBE SCH (07:55)
[2020-03-07] MEDS: levETIRAcetam 500 MG/5 ML UDC GTUBE SCH (07:55)
[2020-03-07] MEDS: Insulin DETEMIR 100 UNIT/ML X5UNITS SQ SCH ×2 (07:55→21:00)
[2020-03-07] MEDS ORDERED: Apixaban 5 MG TABLET PO SCH (09:45)
[2020-03-07] MEDS: Dexmedetomidine HCl 400 MCG/100 ML MLS IVC SCH (09:47)
[2020-03-07] MEDS ORDERED: polyethylene glycoL 3350 17 GM POWD.PACK PO SCH (11:15)
[2020-03-07] MEDS: *HR* LORazepam 2 MG/ML VIAL IVP PRN ×2 (13:09→19:55)
[2020-03-07] MEDS ORDERED: haloperidoL 5 MG TABLET PO SCH (15:00)
[2020-03-07] MEDS ORDERED: *HR* Dextrose 50 % in Water (Syg) 50 ML SYRINGE IVP PRN (15:48)
[2020-03-07] MEDS ORDERED: Naloxone 0.4 MG/ML INJ IVP PRN (15:48)
[2020-03-07] MEDS ORDERED: Ipratropium 1 PUFF INHALER IH PRN (15:48)
[2020-03-07] MEDS ORDERED: D5% in Water 1,000 ML IVC PRN (15:48)
[2020-03-07] MEDS ORDERED: Ipratropium/Albuterol Neb 3 ML IH PRN (15:48)
[2020-03-07] MEDS ORDERED: Dextrose Gel 15 GM/37.5 ML TUBE PO PRN ×2 (15:48)
[2020-03-07] MEDS ORDERED: levETIRAcetam 250 MG TABLET PO SCH (18:00)
[2020-03-07] MEDS: levETIRAcetam 250 MG TABLET PO SCH (18:41)
[2020-03-07] MEDS: Metoprolol XL (24 HR) Succ 50 MG TAB.ER.24H PO SCH (19:52)
[2020-03-07] MEDS: Apixaban 5 MG TABLET PO SCH (19:53)
[2020-03-07] MEDS: haloperidoL 5 MG TABLET PO SCH (19:54)
[2020-03-07] MEDS ORDERED: Sennosides/Docusate Sodium TABLET GTUBE SCH (21:00)
[2020-03-07] MEDS ORDERED: Metoprolol XL (24 HR) Succ 50 MG TAB.ER.24H PO SCH (21:00)
[2020-03-08 01:10] LABS: Hematocrit 29.3 % (37.5-50.1); Hemoglobin 9.7 g/dL (12.9-16.9); Mean Corpuscular HGB Conc 33.1 g/dL (31.6-35.5); Mean Corpuscular Hemoglobin 29.2 pg (28.0-33.3); Mean Corpuscular Volume 88.3 fL (83.0-100.0); Mean Platelet Volume 10.5 fL (9.4-12.4); Platelet Count 300 K/mcL (140-400); Red Blood Count 3.32 M/mcL (4.19-5.50); Red Cell Distribution Width 13.7 % (11.5-14.5)
[2020-03-08 01:12] LABS: White Blood Count 11.6 K/mcL (4.3-11.1)
[2020-03-08 01:21] LABS: Albumin 3.4 g/dL (3.5-5.7); Albumin/Globulin Ratio 1.2 (1.1-2.2); Bilirubin,Total 0.4 mg/dL (0.3-1.0); Calcium 9.6 mg/dL (8.6-10.3); Globulin 2.8 g/dL (2.4-3.5); Phosphorous 3.8 mg/dL (2.7-4.5); Total Protein 6.2 g/dL (6.4-8.9)
[2020-03-08] MEDS: Doxycycline 100 MG in 0.9 % Sodium Chloride Mini Bag 100 ML IVPB SCH (05:10)
[2020-03-08] MEDS: levETIRAcetam 250 MG TABLET PO SCH ×2 (05:12→16:53)
[2020-03-08] MEDS: MethylPREDNISolone 40 MG/ML VIAL IVP SCH (05:12)
[2020-03-08] MEDS: Insulin LISPRO 300 UNITS/3 ML VIAL SQ SCH ×4 (06:01→20:38)
[2020-03-08] MEDS: Apixaban 5 MG TABLET PO SCH ×2 (08:03→20:10)
[2020-03-08] MEDS: amLODIPine 5 MG TABLET PO SCH (08:04)
[2020-03-08] MEDS: Metoprolol XL (24 HR) Succ 50 MG TAB.ER.24H PO SCH ×2 (08:04→20:09)
[2020-03-08] MEDS: hydrALAZINE 25 MG TABLET PO SCH ×3 (08:04→23:00)
[2020-03-08] MEDS: haloperidoL 5 MG TABLET PO SCH ×3 (08:04→20:09)
[2020-03-08] MEDS: Aspirin 81 MG TAB.CHEW PO SCH (08:04)
[2020-03-08] MEDS: Sennosides/Docusate Sodium TABLET PO SCH ×2 (08:05→20:10)
[2020-03-08] MEDS: polyethylene glycoL 3350 17 GM POWD.PACK PO SCH (08:13)
[2020-03-08 08:17] LABS: ANA HEp-2 IgG IFA <1:80 (<1:80)
[2020-03-08] MEDS: Insulin DETEMIR 100 UNIT/ML X5UNITS SQ SCH ×2 (08:31→20:10)
[2020-03-08] MEDS ORDERED: Pantoprazole 40 MG VIAL IVP SCH (09:00)
[2020-03-08] MEDS: Isosorbide MONOnitrate (24 HR) 30 MG TAB.ER.24H PO SCH (11:11)
[2020-03-08] MEDS: predniSONE 20 MG TABLET PO SCH (12:55)
[2020-03-08] MEDS: Cefdinir 300 MG CAPSULE PO SCH (12:55)
[2020-03-08] MEDS: Doxycycline 100 MG CAPSULE PO SCH (16:54)
[2020-03-08] MEDS ORDERED: Cefepime HCl 1,000 MG in 0.9 % Sodium Chloride Mini Bag 100 ML IVPB SCH (18:00)
[2020-03-08] MEDS: *HR* LORazepam 2 MG/ML VIAL IVP PRN (20:11)
[2020-03-09] MEDS: *HR* LORazepam 2 MG/ML VIAL IVP PRN ×2 (03:18→22:45)
[2020-03-09] MEDS: levETIRAcetam 250 MG TABLET PO SCH ×2 (06:08→17:06)
[2020-03-09] MEDS: Doxycycline 100 MG CAPSULE PO SCH ×2 (06:08→17:06)
[2020-03-09 06:26] LABS: Hematocrit 28.2 % (37.5-50.1); Hemoglobin 9.3 g/dL (12.9-16.9); Mean Corpuscular Hemoglobin 29.5 pg (28.0-33.3); Mean Corpuscular Volume 89.5 fL (83.0-100.0); Mean Platelet Volume 10.4 fL (9.4-12.4); Platelet Count 269 K/mcL (140-400); Red Blood Count 3.15 M/mcL (4.19-5.50); Red Cell Distribution Width 13.8 % (11.5-14.5); White Blood Count 10.2 K/mcL (4.3-11.1)
[2020-03-09 06:44] LABS: Calcium 9.5 mg/dL (8.6-10.3); Potassium 4.2 mEq/L (3.5-5.1)
[2020-03-09] MEDS: hydrALAZINE 25 MG TABLET PO SCH ×4 (07:57→23:19)
[2020-03-09] MEDS: polyethylene glycoL 3350 17 GM POWD.PACK PO SCH (07:58)
[2020-03-09] MEDS: Sennosides/Docusate Sodium TABLET PO SCH ×2 (07:59→21:18)
[2020-03-09] MEDS: Insulin DETEMIR 100 UNIT/ML X5UNITS SQ SCH ×2 (08:05→21:21)
[2020-03-09] MEDS: Insulin LISPRO 300 UNITS/3 ML VIAL SQ SCH ×4 (08:05→21:13)
[2020-03-09] MEDS: haloperidoL 5 MG TABLET PO SCH ×3 (08:53→21:19)
[2020-03-09] MEDS: Folic Acid 1 MG TABLET PO SCH (08:53)
[2020-03-09] MEDS: amLODIPine 5 MG TABLET PO SCH (08:54)
[2020-03-09] MEDS: Aspirin 81 MG TAB.CHEW PO SCH (08:54)
[2020-03-09] MEDS: predniSONE 20 MG TABLET PO SCH (08:55)
[2020-03-09] MEDS: Fluticasone Propionate Nasal 50 MCG/SPRAY BOTTLE NS SCH (08:55)
[2020-03-09] MEDS: Isosorbide MONOnitrate (24 HR) 30 MG TAB.ER.24H PO SCH (08:55)
[2020-03-09] MEDS: Apixaban 5 MG TABLET PO SCH ×2 (08:55→21:17)
[2020-03-09] MEDS: Cefdinir 300 MG CAPSULE PO SCH (08:56)
[2020-03-09] MEDS: Metoprolol XL (24 HR) Succ 50 MG TAB.ER.24H PO SCH ×2 (12:19→21:20)
[2020-03-10 04:15] LABS: Basophils % 0.2 %; Eosinophils # 0.1 K/mcL (0.0-0.6); Eosinophils % 0.7 %; Hematocrit 32.5 % (37.5-50.1); Hemoglobin 10.3 g/dL (12.9-16.9); Immature Granulocytes % 1.8 % (0-4); Lymphocytes # 1.1 K/mcL (0.6-4.6); Lymphocytes % 10.6 %; Mean Corpuscular HGB Conc 31.7 g/dL (31.6-35.5); Mean Corpuscular Hemoglobin 28.5 pg (28.0-33.3); Mean Platelet Volume 10.5 fL (9.4-12.4); Monocytes # 1.2 K/mcL (0.0-1.3); Monocytes % 11.4 %; Neutrophils # 8.1 K/mcL (1.6-8.9); Platelet Count 303 K/mcL (140-400); Red Blood Count 3.61 M/mcL (4.19-5.50); Red Cell Distribution Width 14.1 % (11.5-14.5); Segmented Neutrophils % 75.3 %; White Blood Count 10.7 K/mcL (4.3-11.1)
[2020-03-10 04:34] LABS: Calcium 9.7 mg/dL (8.6-10.3); Potassium 4.7 mEq/L (3.5-5.1)
[2020-03-10] MEDS: haloperidoL 5 MG TABLET PO SCH ×3 (09:04→21:45)
[2020-03-10] MEDS: Cefdinir 300 MG CAPSULE PO SCH (09:05)
[2020-03-10] MEDS: predniSONE 20 MG TABLET PO SCH (09:05)
[2020-03-10] MEDS: Apixaban 5 MG TABLET PO SCH ×2 (09:05→21:44)
[2020-03-10] MEDS: Isosorbide MONOnitrate (24 HR) 30 MG TAB.ER.24H PO SCH (09:05)
[2020-03-10] MEDS: hydrALAZINE 25 MG TABLET PO SCH ×2 (09:07→16:53)
[2020-03-10] MEDS: Metoprolol XL (24 HR) Succ 50 MG TAB.ER.24H PO SCH ×2 (09:07→21:49)
[2020-03-10] MEDS: Aspirin 81 MG TAB.CHEW PO SCH (09:08)
[2020-03-10] MEDS: amLODIPine 5 MG TABLET PO SCH (09:08)
[2020-03-10] MEDS: Folic Acid 1 MG TABLET PO SCH (09:08)
[2020-03-10] MEDS: Sennosides/Docusate Sodium TABLET PO SCH ×2 (09:09→21:47)
[2020-03-10] MEDS: levETIRAcetam 250 MG TABLET PO SCH ×2 (09:10→16:53)
[2020-03-10] MEDS: Doxycycline 100 MG CAPSULE PO SCH (09:10)
[2020-03-10] MEDS: polyethylene glycoL 3350 17 GM POWD.PACK PO SCH (09:15)
[2020-03-10] MEDS: Insulin DETEMIR 100 UNIT/ML X5UNITS SQ SCH ×2 (09:27→21:46)
[2020-03-10] MEDS: Fluticasone Propionate Nasal 50 MCG/SPRAY BOTTLE NS SCH (09:28)
[2020-03-10] MEDS ORDERED: Ringers Solution, Lactated 1,000 ML IVC SCH (09:45)
[2020-03-10] MEDS: Insulin LISPRO 300 UNITS/3 ML VIAL SQ SCH ×4 (12:04→21:46)
[2020-03-10] MEDS: *HR* LORazepam 2 MG/ML VIAL IVP PRN (17:53)
[2020-03-11] MEDS: hydrALAZINE 25 MG TABLET PO SCH ×4 (00:22→23:02)
[2020-03-11] MEDS: levETIRAcetam 250 MG TABLET PO SCH ×2 (05:32→18:54)
[2020-03-11] MEDS: Insulin LISPRO 300 UNITS/3 ML VIAL SQ SCH ×4 (07:39→20:33)
[2020-03-11] MEDS: haloperidoL 5 MG TABLET PO SCH ×3 (07:39→20:30)
[2020-03-11] MEDS: Sennosides/Docusate Sodium TABLET PO SCH ×2 (07:40→20:30)
[2020-03-11] MEDS: Isosorbide MONOnitrate (24 HR) 30 MG TAB.ER.24H PO SCH (07:40)
[2020-03-11] MEDS: Aspirin 81 MG TAB.CHEW PO SCH (07:40)
[2020-03-11] MEDS: amLODIPine 5 MG TABLET PO SCH (07:40)
[2020-03-11] MEDS: polyethylene glycoL 3350 17 GM POWD.PACK PO SCH (07:40)
[2020-03-11] MEDS: Folic Acid 1 MG TABLET PO SCH (07:40)
[2020-03-11] MEDS: Apixaban 5 MG TABLET PO SCH ×2 (07:40→20:30)
[2020-03-11] MEDS: Fluticasone Propionate Nasal 50 MCG/SPRAY BOTTLE NS SCH (07:48)
[2020-03-11] MEDS ORDERED: predniSONE 10 MG TABLET PO SCH (09:00)
[2020-03-11] MEDS: Metoprolol XL (24 HR) Succ 50 MG TAB.ER.24H PO SCH (11:42)
[2020-03-11 12:21] LABS: Calcium 8.1 mg/dL (8.6-10.3); Potassium 3.9 mEq/L (3.5-5.1)
[2020-03-11] MEDS ORDERED: 0.9 % Sodium Chloride 1,000 ML IVC SCH (15:00)
[2020-03-11] MEDS ORDERED: Insulin DETEMIR 100 UNIT/ML X5UNITS SQ SCH (21:00)
[2020-03-12 03:38] LABS: Calcium 8.4 mg/dL (8.6-10.3); Potassium 4.1 mEq/L (3.5-5.1)
[2020-03-12] MEDS: levETIRAcetam 250 MG TABLET PO SCH ×2 (06:20→16:22)
[2020-03-12] MEDS: Insulin LISPRO 300 UNITS/3 ML VIAL SQ SCH ×4 (07:43→21:06)
[2020-03-12] MEDS: Folic Acid 1 MG TABLET PO SCH (07:45)
[2020-03-12] MEDS: polyethylene glycoL 3350 17 GM POWD.PACK PO SCH (07:45)
[2020-03-12] MEDS: Apixaban 5 MG TABLET PO SCH ×2 (07:45→21:05)
[2020-03-12] MEDS: Metoprolol XL (24 HR) Succ 50 MG TAB.ER.24H PO SCH (07:45)
[2020-03-12] MEDS: haloperidoL 5 MG TABLET PO SCH ×3 (07:46→21:05)
[2020-03-12] MEDS: Isosorbide MONOnitrate (24 HR) 30 MG TAB.ER.24H PO SCH (07:46)
[2020-03-12] MEDS: Sennosides/Docusate Sodium TABLET PO SCH ×2 (07:46→21:05)
[2020-03-12] MEDS: Aspirin 81 MG TAB.CHEW PO SCH (07:46)
[2020-03-12] MEDS: amLODIPine 5 MG TABLET PO SCH (07:46)
[2020-03-12] MEDS: hydrALAZINE 25 MG TABLET PO SCH ×2 (07:46→16:22)
[2020-03-12] MEDS: Fluticasone Propionate Nasal 50 MCG/SPRAY BOTTLE NS SCH (07:50)
[2020-03-12] MEDS: Insulin DETEMIR 100 UNIT/ML X5UNITS SQ SCH (21:05)
[2020-03-13] MEDS: hydrALAZINE 25 MG TABLET PO SCH ×4 (00:15→23:59)
[2020-03-13 03:43] LABS: Calcium 8.1 mg/dL (8.6-10.3); Potassium 3.9 mEq/L (3.5-5.1)
[2020-03-13] MEDS: levETIRAcetam 250 MG TABLET PO SCH ×2 (06:05→17:09)
[2020-03-13] MEDS: Insulin LISPRO 300 UNITS/3 ML VIAL SQ SCH ×4 (07:27→21:55)
[2020-03-13] MEDS: haloperidoL 5 MG TABLET PO SCH ×3 (08:43→21:54)
[2020-03-13] MEDS: Aspirin 81 MG TAB.CHEW PO SCH (08:43)
[2020-03-13] MEDS: amLODIPine 5 MG TABLET PO SCH (08:43)
[2020-03-13] MEDS: Metoprolol XL (24 HR) Succ 50 MG TAB.ER.24H PO SCH (08:43)
[2020-03-13] MEDS: Folic Acid 1 MG TABLET PO SCH (08:43)
[2020-03-13] MEDS: Apixaban 5 MG TABLET PO SCH ×2 (08:43→21:55)
[2020-03-13] MEDS: Sennosides/Docusate Sodium TABLET PO SCH ×2 (08:44→21:54)
[2020-03-13] MEDS: polyethylene glycoL 3350 17 GM POWD.PACK PO SCH (08:44)
[2020-03-13] MEDS: Isosorbide MONOnitrate (24 HR) 30 MG TAB.ER.24H PO SCH (08:44)
[2020-03-13] MEDS ORDERED: 0.9 % Sodium Chloride 1,000 ML IVC SCH (10:15)
[2020-03-13] MEDS: Fluticasone Propionate Nasal 50 MCG/SPRAY BOTTLE NS SCH (10:32)
[2020-03-13] MEDS: Insulin DETEMIR 100 UNIT/ML X5UNITS SQ SCH (21:55)
[2020-03-14 04:54] LABS: Calcium 8.1 mg/dL (8.6-10.3); Potassium 3.9 mEq/L (3.5-5.1)
[2020-03-14] MEDS: levETIRAcetam 250 MG TABLET PO SCH (06:06)
[2020-03-14 07:13] VITALS: BP 165/78
[2020-03-14] MEDS: Metoprolol XL (24 HR) Succ 50 MG TAB.ER.24H PO SCH (07:54)
[2020-03-14] MEDS: amLODIPine 5 MG TABLET PO SCH (07:54)
[2020-03-14] MEDS: haloperidoL 5 MG TABLET PO SCH (07:54)
[2020-03-14] MEDS: hydrALAZINE 25 MG TABLET PO SCH (07:54)
[2020-03-14] MEDS: Folic Acid 1 MG TABLET PO SCH (07:55)
[2020-03-14] MEDS: polyethylene glycoL 3350 17 GM POWD.PACK PO SCH (07:55)
[2020-03-14] MEDS: Isosorbide MONOnitrate (24 HR) 30 MG TAB.ER.24H PO SCH (07:55)
[2020-03-14] MEDS: Aspirin 81 MG TAB.CHEW PO SCH (07:55)
[2020-03-14] MEDS: Sennosides/Docusate Sodium TABLET PO SCH (07:55)
[2020-03-14] MEDS: Insulin LISPRO 300 UNITS/3 ML VIAL SQ SCH ×2 (07:56→11:48)
[2020-03-14] MEDS: Fluticasone Propionate Nasal 50 MCG/SPRAY BOTTLE NS SCH (07:56)
[2020-03-14] MEDS: Apixaban 5 MG TABLET PO SCH (07:59)
== END 2020-03-14 14:16 | disposition other institution (70) | DRG 870 ==
LOC: 2NENU 18:59 → EMEROOARM 18:59 → 2NENU 21:02 → 2NNU 23:14 → SUATTDRO 03-03 13:16 → ICNU 03-03 16:39 → 2ANU 03-07 16:57
PROVIDERS: ADMIT Student in an Organized Health Care Education/Training Program; ATTEND Internal Medicine